=== PATIENT | male | born 1990 | race Caucasian/White ===

== ENCOUNTER 2016-09-19 13:05 | Emergency (ER) | payer MEDICAID ==
--- NOTE | 2016-09-19 13:07 | EDPHY ---
H & P Source: Patient, EMS HPI/ROS: HPI CHIEF COMPLAINT: Gravely disabled, schizophrenia HISTORY OF PRESENT ILLNESS: This patient 18-year-old male, brought in by EMS on M1 hold for being gravely disabled. He is homeless schizophrenic. He has been compliant with his medications however upon evaluation today he was disorganized. He was felt to not be able to care for himself was sent here to the emergency room for evaluation. Past Medical History: Schizophrenia Past Surgical History: No recent surgical history Social History: Denies daily use drugs alcohol tobacco products, homeless Family History: Noncontributory ROS REVIEW OF SYSTEMS: A comprehensive 10 point review of systems is otherwise negative aside from elements mentioned in the history of present illness. Exam Constitutional flat affect, unkept, disheveled, poor hygiene, triage nursing summary reviewed, vital signs reviewed, awake/alert. Eyes normal conjunctivae and sclera, EOMI, PERRLA. HENT normal inspection, atraumatic, moist mucus membranes, no epistaxis, neck supple/ no meningismus, no raccoon eyes. Respiratory clear to auscultation bilaterally, normal breath sounds, no respiratory distress, no wheezing. Cardiovascular rate normal, regular rhythm, no murmur, no edema, distal pulses normal. Gastrointestinal soft, non-tender, no rebound, no guarding, normal bowel sounds, no distension, no pulsatile mass. Genitourinary no CVA tenderness. Musculoskeletal no midline vertebral tenderness, full range of motion, no calf swelling, no tenderness of extremities, no meningismus, good pulses, neurovascularly intact. Skin pink, warm, & dry, no rash, skin atraumatic. Neurologic awake, alert and oriented x 3, AAOx3, moves all 4 extremities equally, motor intact, sensory intact, CN II-XII intact, normal cerebellar, normal vision, normal speech. Psychiatric flat affect Heme/Lymph/Immune no lymphadenopathy. Differential Diagnosis: Includes but is not limited to in a particular order: This schizophrenia, depression, gravely disabled Medical Decision Making: Plan for this patient check blood work psychiatric labs, drug screen patient is on M1 hold he will need mental evaluation. Re-evaluation: 1523: Patient on M1 hold. Gravely disabled. Homeless. Medically clear at this time needs mental health evaluation. 2010: Patient has been evaluated. Pending placement. Patient signed over to Dr. Rivera at 9pm shift change. (Kevyn Riley) Constitutional: Initial Vital Signs Temperature (C) 36.7 C 09/19/16 13:37 Heart Rate 64 09/19/16 13:37 Respiratory Rate 16 09/19/16 13:37 Blood Pressure 135/94 H 09/19/16 13:37 O2 Sat (%) 96 09/19/16 13:37 O2 Delivery Mode Room Air Allergies/Adverse Reactions: No Known Allergies Allergy (Verified 09/19/16 15:50) Home Medications: Medication Instructions Recorded [place] Carbonate ER [Lithobid 300 600 mg PO DAILY 09/19/16 mg (*)] OLANZapine [Zyprexa] 40 mg PO HS 09/19/16 QUEtiapine FUMARATE [Seroquel 300 mg PO HS 09/19/16 300mg (*)] busPIRone [Buspar (*)] 30 mg PO DAILY 09/19/16 traZODone [traZODONE 100MG (*)] 400 mg PO HS 09/19/16 Medical Decision Making ED Course/Re-evaluation: 2300 care assumed by me from Dr. Rivera pending placement. 0111 patient has been accepted by [facility] by Dr. Landaverde. (Raffaele Hall) - Data Points Laboratory Results: Laboratory Results 09/19/16 13:25 09/19/16 23:56 Medications Given: Discontinued Medications Potassium Chloride (Klor-Con) 40 meq PO ONCE ONE Stop: 09/19/16 21:11 Last Admin: 09/19/16 21:18 Dose: 40 meq Departure - Departure Disposition: Other Psych, Not [place] Clinical Impression: Gravely disabled Condition: Fair Referrals: Patient,NotPresent [Unknown] - As per Instructions
[2016-09-19 13:34] LABS: % IMMATURE GRANULYOCYTES 0.4 % (0.0-1.1); ABSOLUTE IMMATURE GRANULOCYTES 0.03 10^3/uL (0.00-0.10); ADD DIFF? NO; ADD MORPH? NO; ADD SCAN? NO; ATYPICAL LYMPHOCYTE FLAG 10 (0-99); FRAGMENT RBC FLAG 0 (0-99); HEMATOCRIT 52.3 % (40.0-51.0); HEMOGLOBIN 18.5 g/dL (13.7-17.5); LEFT SHIFT FLG 0 (0-99); LIPEMIA HEMOLYSIS FLAG 90 (0-99); MEAN CELL HEMOGLOBIN 30.9 pg (27.9-34.1); MEAN CELL HEMOGLOBIN CONCENTR. 35.4 g/dL (32.4-36.7); MEAN CELL VOLUME 87.3 fL (81.5-99.8); MEAN PLATELET VOLUME 10.2 fL (8.7-11.7); PLATELET CLUMPS FLAG 0 (0-99); PLATELET COUNT 223 10^3/uL (150-400); RED BLOOD CELL COUNT 5.99 10^6/uL (4.40-6.38); RED CELL DISTRIBUTION WIDTH 12.8 % (11.5-15.2)
[2016-09-19 13:51] LABS: ANION GAP 13 mEq/L (8-16); CALCIUM 10.6 mg/dL (8.5-10.4); CARBON DIOXIDE 29 mEq/l (22-31); CHLORIDE 98 mEq/L (97-110); CREATININE 0.9 mg/dL (0.7-1.3); ETHANOL SERUM < 10 mg/dL (0-10); GLOMERULAR FILTRATION RATE > 60; GLUCOSE 83 mg/dL (70-100); LITHIUM 0.6 mEq/L (0.6-1.2); POTASSIUM 3.2 mEq/L (3.5-5.2); SALICYLATE < 1.0 mg/dL (2.0-20.0); SODIUM 140 mEq/L (134-144)
[2016-09-19 13:59] VITALS: RESP 16
[2016-09-19 16:41] VITALS: TEMP 98.2; O2SAT 97
[2016-09-19] MEDS ORDERED: POTASSIUM CL 20 MEQ TAB PO ONE (21:10)
[2016-09-19 23:08] VITALS: BP 129/80; PULSE 59
[2016-09-20 00:11] LABS: POTASSIUM 3.5 mEq/L (3.5-5.2)
== END 2016-09-20 02:13 ==
LOC: EDUNIT#
DX: F79 Unspecified intellectual disabilities (principal)
CPT/HCPCS: 80305; G0480